=== PATIENT | female | born 1965 | race Caucasian/White ===

== ENCOUNTER → 2021-01-31 12:02 | Outpatient (BNVA) | payer BC, SELFPAY | PROVIDERS: Visit Provider Nurse Practitioner Family | DX: I10 Essential (primary) hypertension (principal); R53.82 Chronic fatigue, unspecified; H60.502 Unspecified acute noninfective otitis externa, left ear; Z12.11 Encounter for screening for malignant neoplasm of colon; Z12.2 Encounter for screening for malignant neoplasm of respiratory organs; Z12.4 Encounter for screening for malignant neoplasm of cervix; Z78.0 Asymptomatic menopausal state | CPT/HCPCS: 80053; 80061; 82306; 82607; 84439; 84443; 84481; 85025; 88175 ==

== ENCOUNTER 2021-03-17 14:03 | Outpatient (CLI) | payer BC, SELFPAY ==
--- NOTE | 2021-03-17 14:00 | MM_ITS ---
WS: [id number] Exam: [place] [id number] Date/Time of Exam: 03/17/2021 2:11 PM Reason For Exam: Z12.39 - Encounter for other screening for malignant neop... VIEWS: MLO and CC views both breasts. Comparison made with prior exam of 07/24/2008, 07/27/2009 and 02/02/2016.. Findings: There are multiple stable appearing nodular densities in both breasts. No suspicious calcification or architectural distortion. The breasts are heterogeneously dense. MM/[place] [id number] Impression: BI-RADS: 2-Benign FOLLOW-UP: 1 Year Follow-up This mammogram was also analyzed by the Computer Aided Detection System R2 Imag e [employer].
--- NOTE | 2021-03-17 14:38 | XR_ITS ---
WS: [id number] DEXA (DUAL ENERGY X-RAY ABSORPTIOMETRY) Bone mineral density was performed using a [employer] machine. HISTORY: Z78.0 - Asymptomatic menopausal state COMPARISON: None available. Lumbar spine BMD (L1-L4): 0.606 g/cm2 T score: -4.8 Z score: -3.1 Total hip BMD: Left: 0.473 g/cm2. T score: -4.2 Z score: -3.0 Right: 0.502 g/cm2. T score: -4.0 Z score: -2.8 10 year probability of a major osteoporotic fracture is 38%. XR/XR DEXA axial skeleton* [id number] IMPRESSION: OSTEOPOROSIS based upon the WHO classification for females.
== END 2021-03-17 14:04 | disposition home or self-care (01) ==
LOC: RADSHAW 14:08
PROVIDERS: PCP Nurse Practitioner Family; Visit Provider Nurse Practitioner Family
DX: Z78.0 Asymptomatic menopausal state (principal); Z12.31 Encounter for screening mammogram for malignant neoplasm of breast; M81.0 Age-related osteoporosis without current pathological fracture
CPT/HCPCS: 77067; 77080

== ENCOUNTER → 2025-02-16 13:39 | Outpatient (BNVA) | payer MEDICAID, SELFPAY | PROVIDERS: PCP Nurse Practitioner Family; Visit Provider Nurse Practitioner Family | DX: Z01.419 Encounter for gynecological examination (general) (routine) without abnormal findings (principal) | CPT/HCPCS: 80053; 80061; 82306; 82607; 84443; 85025 ==

== ENCOUNTER 2025-02-27 15:04 | Outpatient (CLI) | payer MEDICAID, SELFPAY ==
--- NOTE | 2025-02-27 15:15 | CT_ITS ---
WS: [id number] LDCT LUNG CANCER SCREENING HISTORY: F17.210 - Nicotine dependence, cigarettes, uncomplicated TECHNIQUE: Axial imaging performed from the apices to 1 cm below the costophrenic angles. Coronal and sagittal reformats are submitted with axial MIP series. All CT scans at [facility] use at least one of these dose optimization techniques: automated exposure control; mA and/or kV adjustment per patient size (includes targeted exams where dose is matched to clinical indication); or iterative reconstruction. DLP: 44.29 mGy.cm DIvol: Mean CTDIvol: 0.60 (mGy) COMPARISON: None available. Diagnostic quality: Satisfactory Lungs: Mildly hyperinflated lungs. There are a few very tiny micronodules. No mass or endobronchial lesions. Heart: Normal size heart with no pericardial effusion.. Other findings: Mild atherosclerosis aorta. No adenopathy. Well-circumscribed low-attenuation mass in the RIGHT upper abdomen measures 4.0 x 2.9 cm. Separate adrenal gland is not identified. Hounsfield units are low suggesting this is an adenoma. This has not been described on prior studies. There is also mild thickening of the LEFT adrenal gland. CT/CT lung screening [id number] IMPRESSION: LUNG-RADS: 2S-Benign Appearance or Behavior with Significant Findings FOLLOW UP: 12 Month: Continue annual screening with LDCT OTHER FINDINGS (S MODIFIER): RIGHT adrenal mass is probably a benign adenoma. T his has not been previously described are identified. There is also mild thicke reynaldo of the LEFT adrenal gland. Recommend follow-up MRI or CT adrenal gland pro tocol (with and without contrast).
== END 2025-02-27 15:05 | disposition home or self-care (01) ==
LOC: RAD 15:05
PROVIDERS: PCP Nurse Practitioner Family; Visit Provider Nurse Practitioner Family
DX: Z12.2 Encounter for screening for malignant neoplasm of respiratory organs (principal); F17.210 Nicotine dependence, cigarettes, uncomplicated; R91.8 Other nonspecific abnormal finding of lung field; I70.0 Atherosclerosis of aorta; R93.5 Abnormal findings on diagnostic imaging of other abdominal regions, including retroperitoneum; E27.8 Other specified disorders of adrenal gland
CPT/HCPCS: 71271

== ENCOUNTER 2025-03-02 14:04 | Outpatient (CLI) | payer MEDICAID, SELFPAY ==
--- NOTE | 2025-03-02 14:15 | MM_ITS ---
WS: [id number] BILATERAL 3D TOMOSYNTHESIS DIGITAL DIAGNOSTIC MAMMOGRAPHY WITH CAD CLINICAL INFORMATION: N63.0 - Unspecified lump in unspecified breast HISTORY: LEFT breast lump COMPARISON: 2020 TECHNIQUE: Bilateral CC, MLO, and ML views. FINDINGS: The breasts are composed of heterogeneous fibroglandular density, which can limit the detection of small underlying mass lesions. Vascular calcifications. Punctate and lucent centered calcifications. Palpable marker upper outer LEFT breast. Ultrasound of this area is pending. Dense parenchymal tissue with spiculation deep to the palpable marker with some architectural distortion on the spot compression images. ULTRASOUND BREAST LEFT TECHNIQUE: Ultrasound left breast focused area of concern. CLINICAL INFORMATION: N63.0 - Unspecified lump in unspecified breast FINDINGS: Ultrasound LEFT breast at the 2 o'clock position 6 cm from the nipple in the area of palpable concern. Hypoechoic solid-appearing lesion wider than tall measuring 1.9 x 2.5 x 1.0 cm with dense shadowing. This lesion has a suspicious appearance. Ultrasound LEFT axilla appears normal Recommend further evaluation with ultrasound-guided biopsy. MM/MM diag tomosynthesis [id number] IMPRESSION: DENSITY: The breasts are heterogeneously dense, which may obscure small masses. BI-RADS: 4 - Suspicious Finding - Biopsy Should Be Considered FOLLOW UP: US Guided Biopsy Recommended Recommend ultrasound-guided biopsy of the suspicious LEFT breast lesion.
--- NOTE | 2025-03-02 14:45 | US_ITS ---
WS: [id number] BILATERAL 3D TOMOSYNTHESIS DIGITAL DIAGNOSTIC MAMMOGRAPHY WITH CAD CLINICAL INFORMATION: N63.0 - Unspecified lump in unspecified breast HISTORY: LEFT breast lump COMPARISON: 2020 TECHNIQUE: Bilateral CC, MLO, and ML views. FINDINGS: The breasts are composed of heterogeneous fibroglandular density, which can limit the detection of small underlying mass lesions. Vascular calcifications. Punctate and lucent centered calcifications. Palpable marker upper outer LEFT breast. Ultrasound of this area is pending. Dense parenchymal tissue with spiculation deep to the palpable marker with some architectural distortion on the spot compression images. ULTRASOUND BREAST LEFT TECHNIQUE: Ultrasound left breast focused area of concern. CLINICAL INFORMATION: N63.0 - Unspecified lump in unspecified breast FINDINGS: Ultrasound LEFT breast at the 2 o'clock position 6 cm from the nipple in the area of palpable concern. Hypoechoic solid-appearing lesion wider than tall measuring 1.9 x 2.5 x 1.0 cm with dense shadowing. This lesion has a suspicious appearance. Ultrasound LEFT axilla appears normal Recommend further evaluation with ultrasound-guided biopsy. US/US breast LT limited* [id number] IMPRESSION: DENSITY: The breasts are heterogeneously dense, which may obscure small masses. BI-RADS: 4 - Suspicious Finding - Biopsy Should Be Considered FOLLOW UP: US Guided Biopsy Recommended Recommend ultrasound-guided biopsy of the suspicious LEFT breast lesion.
== END 2025-03-02 14:05 | disposition home or self-care (01) ==
PROVIDERS: PCP Nurse Practitioner Family; Visit Provider Nurse Practitioner Family
DX: N63.21 Unspecified lump in the left breast, upper outer quadrant (principal); R92.333 Mammographic heterogeneous density, bilateral breasts; R92.1 Mammographic calcification found on diagnostic imaging of breast; N64.89 Other specified disorders of breast
CPT/HCPCS: 76642; 77062; G0279

== ENCOUNTER 2025-03-18 11:24 | Outpatient (CLI) | payer MEDICAID, SELFPAY ==
--- NOTE | 2025-03-18 11:29 | US_ITS ---
WS: [id number] ULTRASOUND-GUIDED LEFT BREAST BIOPSY HISTORY: ABNORMAL MAMMOGRAM/LUMP COMPARISON: 03/02/2025 Procedure, risks and complications are explained to the patient. Medications are reviewed. Consent is obtained. The mass in the LEFT breast is localized with ultrasound. Mass localizes to 2:00, 6 cm from the nipple. Skin is cleansed with ChloraPrep and anesthetized with 1% buffered lidocaine. Small dermatome is made. Under sterile conditions mass is biopsied with a 14-gauge Achieve needle. Multiple core biopsies are performed. Material placed in formalin and sent to pathology for review. No complications encountered. Breast tissue marker (eDabba ultrasound enhanced ribbon): Single. Patient left the radiology suite with no complications. Patient is instructed to return to [facility] or call with any concerns. US/[place] [id number] IMPRESSION: 1. Uncomplicated core needle biopsy LEFT breast mass at 2:00. PATHOLOGY: Moderate differentiated invasive mammary carcinoma with intermediate to unfavorable nuclear grade. Please see the entire pathology report for furth er details. Breast cancer prognostic profile is pending. RECOMMENDATION: Follow-up with oncology and breast surgeon.
== END 2025-03-18 11:25 | disposition home or self-care (01) ==
PROVIDERS: PCP Nurse Practitioner Family; Visit Provider Nurse Practitioner Family
DX: R92.8 Other abnormal and inconclusive findings on diagnostic imaging of breast (principal); C50.412 Malignant neoplasm of upper-outer quadrant of left female breast; R92.0 Mammographic microcalcification found on diagnostic imaging of breast
CPT/HCPCS: 19083; 88305; 88361; 88374

== ENCOUNTER 2025-04-08 15:03 | Oncology outpatient (recurring) (ONCR) | payer MEDICAID, SELFPAY | END 2025-04-30 23:59 | disposition home or self-care (01) | PROVIDERS: PCP Nurse Practitioner Family; Visit Provider Internal Medicine Medical Oncology | DX: Z53.9 Procedure and treatment not carried out, unspecified reason (principal) | CPT/HCPCS: 36415 ==

== ENCOUNTER 2025-05-06 10:18 | Day surgery (SDC) | payer MEDICAID, SELFPAY ==
[2025-05-06] VITALS (9 sets, daily range): BP systolic 136–179; BP diastolic 87–123; PULSE 64–86; RESP 16–18; TEMP 36.3–36.4; O2SAT 97–99; BMI 17.6
--- NOTE | 2025-05-06 10:41 | W.PM.OPSFHP ---
Same Day Surgery H&P Indication for Procedure/HPI DATE OF PROCEDURE: May 06, 2025 CHIEF COMPLAINT/INDICATIONFOR SURGICAL PROCEDURE: left breast cancer PREOP DIAGNOSIS: left breast cancer PLANNED PROCEDURE: Operation Date: 05/06/25 12:40 Proposed Procedures p LEFT Breast Lumpectomy w/ Needle Localization [id number] [id number] 09150 47513 C50.912(Left) - Alban Tucker MD s Sentinal Lymph Node Biopsy(Left) - Alban Tucker MD Medications/Allergies* Home Medications ?Medication ?Instructions ?Recorded ?Confirmed ?Type ascorbic acid (vitamin C) 1,000 mg 1,000 mg PO DAILY 05/05/25 05/05/25 History tablet (Vitamin C) cholecalciferol (vitamin D3) 50 50 mcg PO DAILY 05/05/25 05/05/25 History mcg (2,000 unit) capsule (Vitamin D3) cobalamin combinations capsule 1,000 cap PO DAILY 05/05/25 05/05/25 History multivitamin 1 tab PO DAILY 05/05/25 05/05/25 History Allergies/Adverse Reactions Allergy/AdvReac Type Severity Reaction Status Date / Time No Known Allergies Allergy Verified 05/05/25 10:28 Pertinent History/Comorbid Conditions* Medical History (Updated 03/31/25 @ 16:23 by Marcelo Diaz MD) Hypertension Nicotine abuse Alcohol abuse Anxiety and depression Gum disease Surgical History (Updated 01/31/21 @ 11:00 by TERI Evangelista) History of laparoscopy Hx of tubal ligation Family History (Updated 01/31/21 @ 10:40 by Suzanne Mora LPN, RT) Cancer Mother Social History Smoking and tobacco/nicotine status: current every day tobacco/nicotine user (1/2 PPD) cigarettes Packs smoked per day: 0.5 Years cigarettes smoked: 35 Second hand smoke exposure: Yes Alcohol intake: current Alcohol intake frequency: 0-2 Drinks per Day Alcohol type: beer Substance/Drug Use: never Lives independently: Yes Household members: spouse Marital status: service: No Current occupational status: unemployed Current gender identity: Female Special akira needs: No Agree to transfusion: Yes Pertinent Exam Findings alert, oriented x 3, clear to auscultation bilaterally and operative site marked Left breast marked. Left breast upper outer quadrant 1 cm hard nodule. No skin changes. No discharge. Right breast exam normal. No lymphadenopathy. Recommendations Risks and benefits of procedure reviewed and Patient/family agree to proceed Surgery/Procedure today Other Plans: Left breast lumpectomy, sentinel lymph node biopsy. Coding Level of Care Code Acute Code for Chg Fwd
--- NOTE | 2025-05-06 10:43 | US_ITS ---
WS: [id number] ULTRASOUND-GUIDED LEFT breast needle localization CLINICAL INFORMATION: LT BREAST NEEDLE LOC FINDINGS: The procedure including risks, benefits, and complications were discussed with the patient who agreed to proceed. Using sterile technique patient was prepped and draped in the usual sterile fashion. After 1% lidocaine utilizing real-time ultrasound guidance a 7 cm Kopans needle was advanced through the hypoechoic mass at the 2 o'clock position LEFT breast 6 cm from the nipple. Needle was deployed without complication. Tip approximately 1 cm distal to the lesion. No immediate complications. US/[place] [id number] IMPRESSION: 1. Uncomplicated ultrasound-guided LEFT breast mass needle localization 2. Ultrasound surgical specimen demonstrates gross total resection with intact wire. 3. Surgical pathology is pending. 4. Follow-up with oncology and breast surgery as directed DENSITY: The breasts are heterogeneously dense, which may obscure small masses. BI-RADS: 6 - Known Biopsy - Proven Malignancy FOLLOW UP: See Report
--- NOTE | 2025-05-06 11:06 | PC.NURSE ---
1107: pt left ops with staff from radiology
--- NOTE | 2025-05-06 11:12 | ANES.PREANE2 ---
Pre-Anesthetic Assessment Height/Weight: Height 1.52 m Weight 40.823 kg Temp Pulse Resp BP Pulse Ox O2 Del Method 97.6 F 71 18 179/119 98 Room Air 05/06/25 10:39 05/06/25 10:39 05/06/25 10:39 05/06/25 10:39 05/06/25 10:39 05/06/25 10:41 Preop Diagnosis: left breast cancer Operation Date: 05/06/25 12:40 Proposed Procedures p LEFT Breast Lumpectomy w/ Needle Localization 19886 [id number] 83555 [id number] 88681 C50.912(Left) - Alban Tucker MD s Sentinal Lymph Node Biopsy(Left) - Alban Tucker MD Familial anesthetic complications: None Was Beta Tim taken within 24 hours: N/A Was Clonidine taken within 24 hours: N/A Last intake: Intake Last Liquid Date 05/05/25 Last Liquid Time 11:45 Last Solid Date 05/05/25 Last Solid Time 21:30 Social No alcohol and No tobacco Exam alert, oriented x 3, clear to auscultation bilaterally and regular rate & rhythm Airway Mallampati: Class I Dentition: full CV/HEM Hypertension Anesthetic Plan ASA status: 2 Anesthesia: General Risk of > 500 ml blood loss (7ml/kg in children): No Medications/Allergies Home Medications ?Medication ?Instructions ?Recorded ?Confirmed ?Last Taken ?Type cholecalciferol (vitamin D3) 1,250 50,000 unit PO .once weekly #12 02/20/25 05/05/25 05/04/25 Rx mcg (50,000 unit) tablet tabs ascorbic acid (vitamin C) 1,000 mg 1,000 mg PO DAILY 05/05/25 05/05/25 05/04/25 History tablet (Vitamin C) cholecalciferol (vitamin D3) 50 50 mcg PO DAILY 05/05/25 05/05/25 05/04/25 History mcg (2,000 unit) capsule (Vitamin D3) cobalamin combinations capsule 1,000 cap PO DAILY 05/05/25 05/05/25 05/04/25 History multivitamin 1 tab PO DAILY 05/05/25 05/05/25 05/04/25 History Allergies Allergy/AdvReac Type Severity Reaction Status Date / Time No Known Allergies Allergy Verified 05/05/25 10:28 [facility] Anesthesia Medical History Hypertension Nicotine abuse Alcohol abuse Anxiety and depression Gum disease Surgical History History of laparoscopy Hx of tubal ligation Family History Family/Other No problems noted. Mother Cancer Social History Smoking and tobacco/nicotine status: current every day tobacco/nicotine user (1/2 PPD) cigarettes Packs smoked per day: 0.5 Years cigarettes smoked: 35 Second hand smoke exposure: Yes Alcohol intake: current Alcohol intake frequency: 0-2 Drinks per Day Alcohol type: beer Substance/Drug Use: never Lives independently: Yes Household members: spouse Marital status: service: No Current occupational status: unemployed Current gender identity: Female Special akira needs: No Agree to transfusion: Yes
--- NOTE | 2025-05-06 12:00 | NM_ITS ---
WS: [id number] SENTINEL NODE TECHNIQUE: LEFT sentinel node injection at 1146 CLINICAL INFORMATION: C50.912 PROCEDURE: The procedure including risks, benefits, and complications were discussed; the patient agreed to proceed. Patient was prepped and draped in usual sterile fashion. Subsequently, 1 aliquot filtered technetium 99m [id number] was injected into the subcutaneous soft tissues. A total dose of 550 uCi TC99M was administered. Patient tolerated the procedure well with no immediate complications. No delayed imaging. Patient transported to the OR for surgery NM/NM sentinel node inject [id number] IMPRESSION: Uncomplicated LEFT breast sentinel node injection with a total dose of 550 uCi.
[2025-05-06 12:20] LABS: Hematocrit 40.8 % (36-47); Hemoglobin 13.70 g/dL (11.27-16.99); Mean Corpuscular HGB Conc 33.6 g/dL (30-55); Mean Corpuscular Hemoglobin 33.6 pg (27-33); Mean Corpuscular Volume 100.0 fl (85-98); Nucleated Red Blood Cells % 0 %; Platelet Count 358 10^3/cmm (157-399); Red Blood Count 4.08 10^6/uL (3.85-5.65); White Blood Count 6.83 10^3/uL (3.29-11.43)
[2025-05-06] MEDS: ceFAZolin 2,000 mg SDV 2000 MG IVP (12:30)
[2025-05-06 12:37] LABS: Anion Gap 15.8 (5-19); Blood Urea Nitrogen 7 mg/dL (8-23); Calcium 9.5 mg/dL (8.5-10.5); Carbon Dioxide 25 mmol/L (22-29); Chloride 105 mmol/L (98-107); Creatinine Clr Calc Pharmacy 81.3806; Glucose 87 mg/dL (65-115); Osmolality Calculated 291 mOsm/kg (285-295); Potassium 3.8 mmol/L (3.5-5.1); Sodium 142 mmol/L (136-145)
[2025-05-06] MEDS: isosulfan blue 10 mg/mL SDV 5mL SUBCUT (13:13)
[2025-05-06] MEDS: lidocaine-epi 1% 20 mL INJ INJECTION (13:21)
[2025-05-06] MEDS: BUPivacaine 0.25% INJ 10 mL INJECTION (13:22)
--- NOTE | 2025-05-06 13:52 | US_ITS ---
WS: [id number] ULTRASOUND-GUIDED LEFT breast needle localization CLINICAL INFORMATION: LT BREAST NEEDLE LOC FINDINGS: The procedure including risks, benefits, and complications were discussed with the patient who agreed to proceed. Using sterile technique patient was prepped and draped in the usual sterile fashion. After 1% lidocaine utilizing real-time ultrasound guidance a 7 cm Kopans needle was advanced through the hypoechoic mass at the 2 o'clock position LEFT breast 6 cm from the nipple. Needle was deployed without complication. Tip approximately 1 cm distal to the lesion. No immediate complications. US/US breast surgical specimen IMPRESSION: 1. Uncomplicated ultrasound-guided LEFT breast mass needle localization 2. Ultrasound surgical specimen demonstrates gross total resection with intact wire. 3. Surgical pathology is pending. 4. Follow-up with oncology and breast surgery as directed DENSITY: The breasts are heterogeneously dense, which may obscure small masses. BI-RADS: 6 - Known Biopsy - Proven Malignancy FOLLOW UP: See Report
--- NOTE | 2025-05-06 14:01 | PM.OP ---
Operative Report Date of procedure: May 06, 2025 Pre-op diagnosis: Left breast cancer Post-op diagnosis: same Post-op findings: Left breast lumpectomy. Confirmed adequate margins based on x-ray of specimen. [place] lymph node biopsy performed successfully Mia counter 50 at skin level, 75 ex vivo. Resected all palpable, blue, and hot nodes in 1 single pack. Procedure done: Left breast lumpectomy and sentinel lymph node biopsy. Implants: N/A Specimens removed/disposition: Left breast lumpectomy specimen sent to pathology. Margins marked using 2-0 silk. Short superior. Long lateral. [place] lymph node biopsy specimen sent to pathology. Pathology: Left breast lumpectomy specimen and sentinel lymph node biopsy specimen sent to pathology Surgeon: Alban Tucker MD Investment Officer: N/A Anesthesia: General Estimated blood loss (mL): 75 Complications: N/A Findings: Left breast lumpectomy. Confirmed adequate margins based on x-ray of specimen. [place] lymph node biopsy performed successfully Mia counter 50 at skin level, 75 ex vivo. Resected all palpable, blue, and hot nodes in 1 single pack. Condition: stable Disposition: same day Brief History: 60-year-old female who presented with left breast cancer. Discussed risk and benefits and patient agreed to proceed with left lumpectomy and sentinel lymph node biopsy. Ultrasound-guided wire localization of left breast lesion. Radiocolloid injected 30 minutes prior to starting case. Blue dye injected under the areola and massaged breast for 5 minutes. Procedure: The wire localization of the left breast mammographic abnormality was performed by the radiologist under ultrasound guidance prior to bringing patient to the OR. A technetium sulfur colloid was also injected by the radiologist in the periareolar area of the left breast prior to bringing patient to OR. The left breast and axilla was prepped and draped in the usual sterile fashion. General anesthesia induced. Prophylactic antibiotics administered. The sentinel lymph node biopsy was performed first. 5 mL of 1% Lymphazurin was injected in the subareolar location. The breast was massaged for 5 minutes and a 2 cm incision was made in the left axilla at the edge of the hairline (mia counter counts 50 at skin level). The subcutaneous tissue and clavipectoral fascia was divided with electrocautery and gentle dissection revealed lymphatics with stained lymph nodes. Using electrocautery, the lymph nodes that were hot, blue, and palpable were dissected free in a single pack. Ex-vivo mia counter of 75 was obtained using the gamma probe. Examination of the axilla did not reveal any other blue, palpable, or hot lymph nodes. The clavipectoral and subcutaneous tissue was approximated using running 3-0 Vicryl suture and skin was closed using running subcuticular 4-0 Monocryl suture and Dermabond. I then turned my attention to performing the left breast lumpectomy. A curvilinear incision was made over lesion. Subcutaneous tissue was divided and skin flaps were raised superiorly and inferiorly.?Using electrocautery, the wire along with the breast tissue containing mammographic abnormality??was dissected free from the surrounding tissue.??Using 2-0 silk suture the specimen was marked, short stitch was placed superiorly and a long stitch was placed laterally. The wound was irrigated with sterile water, hemostasis ensured with electrocautery and several stick ties as well as medium clips. Multiple anchor sutures performed using 2-0 vicryl. Subcutaneous tissues approximated using 3-0 running Vicryl suture and skin was closed using running subcuticular 4-0 Monocryl sutures and Dermabond. Fluffs were used for pressure dressing.?A sports bra was applied.?Patient was transferred to recovery room and stable condition. The lumpectomy specimens were sent to mammography to obtain radiological confirmation of complete excision of the mammographic abnormality. No close margins identified.
--- NOTE | 2025-05-06 15:20 | ANE.PACU2 ---
Inpatient post-anesthesia follow up: Airway intact: Yes Vital signs: Temperature 97.4 F Pulse Rate 74 Respiratory Rate 17 Blood Pressure 168/99 Pulse Oximetry 98 Oxygen Delivery Me thod Room Air Oxygen Flow Rate Fraction of Inspir ed Oxygen Hydration adequate: Yes Nausea and vomiting: No Pain level: 1 Mental status: Baseline
[2025-05-14 13:41] LABS: Breast Profile ER,PR,HER2,Ki-6 See Report
== END 2025-05-06 15:20 | disposition home or self-care (01) ==
PROVIDERS: Anesthesiology; PCP Nurse Practitioner Family; Visit Provider Student in an Organized Health Care Education/Training Program
PROC: (CPT 19120; principal; 2025-05-06 12:30)
PROC: (CPT 38525; 2025-05-06 12:30)
DX: C50.912 Malignant neoplasm of unspecified site of left female breast (principal); I10 Essential (primary) hypertension; F41.8 Other specified anxiety disorders; F17.210 Nicotine dependence, cigarettes, uncomplicated
CPT/HCPCS: 38525; 19301; 19285; 36415; 38792; 80048; 85025; 88307; 88342; 88361; 88374; A9520; J0690; J2704; J3010; J3490; J7030; J9999; Q9968

== ENCOUNTER 2025-05-25 09:24 | Oncology outpatient (recurring) (ONCR) | payer MEDICAID, SELFPAY ==
[2025-05-25 09:57] LABS: Hematocrit 38.7 % (36-47); Hemoglobin 12.90 g/dL (11.27-16.99); Mean Corpuscular HGB Conc 33.3 g/dL (30-55); Mean Corpuscular Hemoglobin 33.5 pg (27-33); Mean Corpuscular Volume 100.5 fl (85-98); Nucleated Red Blood Cells % 0 %; Platelet Count 376 10^3/cmm (157-399); Red Blood Count 3.85 10^6/uL (3.85-5.65); White Blood Count 7.07 10^3/uL (3.29-11.43)
[2025-05-25 10:44] LABS: Alanine Aminotransferase 11 U/L (0-33); Albumin Level 4.4 g/dL (3.5-5.2); Alkaline Phosphatase 75 U/L (35-105); Anion Gap 18.8 (5-19); Aspartate Amino Transferase 15 U/L (0-32); Blood Urea Nitrogen 8 mg/dL (8-23); Calcium 10.5 mg/dL (8.5-10.5); Carbon Dioxide 22 mmol/L (22-29); Chloride 98 mmol/L (98-107); Creatinine Clr Calc Pharmacy 58.1290; Globulin 2.7 g/dL (1.3-4.6); Glucose 109 mg/dL (65-115); Osmolality Calculated 279 mOsm/kg (285-295); Potassium 3.8 mmol/L (3.5-5.1); Sodium 135 mmol/L (136-145); Total Protein 7.1 g/dL (6.6-8.7)
== END 2025-05-31 23:59 | disposition home or self-care (01) ==
LOC: ONCMED 09:24
PROVIDERS: PCP Nurse Practitioner Family; Visit Provider Internal Medicine Medical Oncology
DX: C50.919 Malignant neoplasm of unspecified site of unspecified female breast (principal)
CPT/HCPCS: 36415; 80053; 85025

== ENCOUNTER 2025-06-24 07:00 | Day surgery (SDC) | payer MEDICAID, SELFPAY ==
[2025-06-24] VITALS (15 sets, daily range): BP systolic 121–140; BP diastolic 82–93; PULSE 74–87; RESP 8–20; TEMP 36.1–37; O2SAT 90–97; BMI 17.6
--- NOTE | 2025-06-24 07:21 | W.PM.OPSUD ---
Surgery/Procedure H&P Update DATE OF PROCEDURE: June 24, 2025 DATE H&P PERFORMED: 05/28/25 H&P UPDATE INFORMATION: I have reviewed H&P completed within last 30 days, I have examined patient prior to procedure, No changes to prior documentation and Risks and benefits of the procedure reviewed PRIMARY INDICATION FOR PROCEDURE: Left mastectomy for breast cancer PLANNED PROCEDURE: Operation Date: 06/24/25 08:20 Proposed Procedures p Mastectomy Simple LEFT 44765 C50.912(Left) - Alban Tucker MD
--- NOTE | 2025-06-24 07:49 | ANES.PREANE2 ---
Pre-Anesthetic Assessment Height/Weight: Height 1.52 m Weight 40.823 kg Temp Pulse Resp BP Pulse Ox O2 Del Method 96.9 F L 76 18 140/93 97 Room Air 06/24/25 07:25 06/24/25 07:25 06/24/25 07:25 06/24/25 07:25 06/24/25 07:25 06/24/25 07:25 Preop Diagnosis: breast ca L Operation Date: 06/24/25 08:20 Proposed Procedures p Mastectomy Simple LEFT 77716 C50.912(Left) - Alban Tucker MD Familial anesthetic complications: none Was Beta Tim taken within 24 hours: N/A Was Clonidine taken within 24 hours: N/A Last intake: Intake Last Liquid Date 06/23/25 Last Liquid Time 22:30 Last Solid Date 06/23/25 Last Solid Time 22:00 Social Tobacco (1 PPD x 52 years) Exam alert, oriented x 3, clear to auscultation bilaterally and regular rate & rhythm Airway Submandibular: within normal limits Cervical ROM: within normal limits Mallampati: Class I Comments: Comments: dentures - upper and lower History/ROS No significant history except as noted Pulmonary Chronic Obstructive Pulmonary Disease CV/HEM Hypertension None reported Hepatic None reported GI None reported Metabolic None reported Musc/skel Osteoarthritis/DJD Neuropsych None reported Anesthetic Plan ASA status: 3 Anesthesia: General Risk of > 500 ml blood loss (7ml/kg in children): No Medications/Allergies Home Medications ?Medication ?Instructions ?Recorded ?Confirmed ?Last Taken ?Type ascorbic acid (vitamin C) 1,000 mg 1,000 mg PO DAILY 05/05/25 06/24/25 06/23/25 History tablet (Vitamin C) cholecalciferol (vitamin D3) 50 50 mcg PO DAILY 05/05/25 06/24/25 06/23/25 History mcg (2,000 unit) capsule (Vitamin D3) multivitamin 1 tab PO DAILY 05/05/25 06/24/25 06/23/25 History oxycodone 5 mg tablet 5 mg PO Q6H 05/25/25 06/24/25 Unknown History amlodipine 5 mg tablet 5 mg PO DAILY #30 tabs 06/23/25 06/24/25 06/24/25 Rx mecobalamin (vitamin B12) 1,000 1,000 mcg PO DAILY 06/23/25 06/24/25 06/23/25 History mcg chewable tablet (B12 Active) Allergies Allergy/AdvReac Type Severity Reaction Status Date / Time No Known Allergies Allergy Verified 06/24/25 07:10 Current Medications Generic Name Dose Route Start Last Admin Trade Name Jay PRN Reason Stop Dose Admin Sodium Chloride 1,000 mls @ 30 mls/hr 06/24/25 07:15 06/24/25 07:48 Sodium Chloride 0.9% IV 06/25/25 07:14 30 mls/hr .Q24H ISMAEL Administration PFSH Anesthesia Medical History Hypertension Nicotine abuse Alcohol abuse Anxiety and depression Gum disease Surgical History History of laparoscopy Hx of tubal ligation Family History Family/Other No problems noted. Mother Cancer Social History Smoking and tobacco/nicotine status: current every day tobacco/nicotine user (1/2 PPD) cigarettes Packs smoked per day: 0.5 Years cigarettes smoked: 35 Second hand smoke exposure: Yes Alcohol intake: current Alcohol intake frequency: 0-2 Drinks per Day Alcohol type: beer Substance/Drug Use: never Lives independently: Yes Household members: spouse Marital status: service: No Current occupational status: unemployed Current gender identity: Female Special akiar needs: No Agree to transfusion: Yes
[2025-06-24] MEDS: ceFAZolin 2,000 mg SDV 2000 MG IVP (08:05)
[2025-06-24] MEDS: BUPivacaine 0.5% INJ 10 mL INJECTION (08:44)
[2025-06-24] MEDS: lidocaine-epi 1% 20 mL INJ INJECTION (08:44)
--- NOTE | 2025-06-24 08:46 | P.OP_ITS ---
Operative Report Date of procedure: June 24, 2025 Pre-op diagnosis: Left breast cancer Post-op diagnosis: same Post-op findings: Left mastectomy Procedure done: Simple left mastectomy Implants: N/A Specimens removed/disposition: Left mastectomy specimen sent to pathology Pathology: Left mastectomy specimen sent to pathology Surgeon: Alban Tucker MD Licensed Bondsman: N/A Anesthesia: General Estimated blood loss (mL): 30 Complications: N/A Findings: Simple left mastectomy. Condition: stable Disposition: same day Brief History: 60-year-old female who presented initially with left breast cancer. Underwent breast conservation surgery and had positive margins. Given small breast unable to take additional margins. Patient agreed to proceed with left mastectomy after discussing risks and benefits. Procedure: The patient was wheeled into the operative room and placed on the OR table in the supine position. The right breast and axilla were inspected prepped and draped in the usual sterile fashion. A timeout was performed. All present were in agreement. An elliptical incision was made from medial to the latissimus dorsi to lateral to the sternum, encompassing the nipple. Dissection was carried out using electrocautery down to the clavipectoral fascia and down to the pectoralis major. The entirety of the breast tissue was excised. The breast was removed and specimen sent to pathology. The surgical field was irrigated with sterile water and adequate hemostasis was achieved using electrocautery and suture ligation of small blood vessels using 3-0 vicryl. A 14 U[place] Callum drain was then placed in the resection bed. Dermis was then approximated with interrupted 2-0 Vicryl. Skin was then closed with multiple interrupted 2-0 nylon stitches. A sterile dressing was applied. Patient tolerated the procedure well and was wheeled in the postoperative anesthesia care unit in good condition.
[2025-06-24] MEDS: fentaNYL 50 mcg/mL INJ 2mL IVP (09:48)
--- NOTE | 2025-06-24 11:05 | ANE.PACU2 ---
Inpatient post-anesthesia follow up: Airway intact: Yes Vital signs: Temperature 97.2 F Pulse Rate 81 Respiratory Rate 17 Blood Pressure 135/84 Pulse Oximetry 92 Oxygen Delivery Me thod Room Air Oxygen Flow Rate Fraction of Inspir ed Oxygen Hydration adequate: Yes Nausea and vomiting: No Pain level: 1 Mental status: Baseline
== END 2025-06-24 11:05 | disposition home or self-care (01) ==
PROVIDERS: PCP Nurse Practitioner Family; Visit Provider Student in an Organized Health Care Education/Training Program
PROC: (CPT 19303; principal; 2025-06-24 08:20)
DX: C50.912 Malignant neoplasm of unspecified site of left female breast (principal); J44.9 Chronic obstructive pulmonary disease, unspecified; I10 Essential (primary) hypertension; Z79.891 Long term (current) use of opiate analgesic; F41.8 Other specified anxiety disorders; F17.210 Nicotine dependence, cigarettes, uncomplicated
CPT/HCPCS: 19303; 88309; J0690; J1100; J2250; J2405; J2704; J3010; J3490; J7030; J9999

== ENCOUNTER 2025-07-21 12:22 | Oncology outpatient (recurring) (ONCR) | payer MEDICAID, SELFPAY ==
[2025-07-21 12:45] LABS: Hematocrit 41.4 % (36-47); Hemoglobin 14.50 g/dL (11.27-16.99); Mean Corpuscular HGB Conc 35.0 g/dL (30-55); Mean Corpuscular Hemoglobin 33.6 pg (27-33); Mean Corpuscular Volume 95.8 fl (85-98); Nucleated Red Blood Cells % 0 %; Platelet Count 443 10^3/cmm (157-399); Red Blood Count 4.32 10^6/uL (3.85-5.65); White Blood Count 8.88 10^3/uL (3.29-11.43)
[2025-07-21 13:07] LABS: Alanine Aminotransferase 13 U/L (0-33); Albumin Level 4.9 g/dL (3.5-5.2); Alkaline Phosphatase 82 U/L (35-105); Anion Gap 20.4 (5-19); Aspartate Amino Transferase 21 U/L (0-32); Blood Urea Nitrogen 5 mg/dL (8-23); Calcium 10.2 mg/dL (8.5-10.5); Carbon Dioxide 24 mmol/L (22-29); Chloride 96 mmol/L (98-107); Globulin 2.8 g/dL (1.3-4.6); Glucose 103 mg/dL (65-115); Osmolality Calculated 280 mOsm/kg (285-295); Potassium 4.4 mmol/L (3.5-5.1); Sodium 136 mmol/L (136-145); Total Protein 7.7 g/dL (6.6-8.7)
== END 2025-07-31 23:59 | disposition home or self-care (01) ==
PROVIDERS: PCP Nurse Practitioner Family; Visit Provider Internal Medicine Medical Oncology
DX: C50.919 Malignant neoplasm of unspecified site of unspecified female breast (principal)
CPT/HCPCS: 36415; 80053; 85025

== ENCOUNTER 2025-09-15 11:27 | Oncology outpatient (recurring) (ONCR) | payer MEDICAID, SELFPAY ==
[2025-09-15 11:52] LABS: Hematocrit 41.1 % (36-47); Hemoglobin 14.10 g/dL (11.27-16.99); Mean Corpuscular HGB Conc 34.3 g/dL (30-55); Mean Corpuscular Hemoglobin 34.1 pg (27-33); Mean Corpuscular Volume 99.3 fl (85-98); Nucleated Red Blood Cells % 0 %; Platelet Count 403 10^3/cmm (157-399); Red Blood Count 4.14 10^6/uL (3.85-5.65); White Blood Count 7.86 10^3/uL (3.29-11.43)
[2025-09-15 12:18] LABS: Alanine Aminotransferase 12 U/L (0-33); Albumin Level 4.6 g/dL (3.5-5.2); Alkaline Phosphatase 79 U/L (35-105); Anion Gap 16.7 (5-19); Aspartate Amino Transferase 18 U/L (0-32); Blood Urea Nitrogen 6 mg/dL (8-23); Calcium 9.9 mg/dL (8.5-10.5); Carbon Dioxide 25 mmol/L (22-29); Chloride 100 mmol/L (98-107); Globulin 2.5 g/dL (1.3-4.6); Glucose 103 mg/dL (65-115); Osmolality Calculated 284 mOsm/kg (285-295); Potassium 3.7 mmol/L (3.5-5.1); Sodium 138 mmol/L (136-145); Total Protein 7.1 g/dL (6.6-8.7)
== END 2025-09-30 23:59 | disposition home or self-care (01) ==
PROVIDERS: PCP Nurse Practitioner Family; Visit Provider Internal Medicine Medical Oncology
DX: C50.912 Malignant neoplasm of unspecified site of left female breast (principal); E55.9 Vitamin D deficiency, unspecified
CPT/HCPCS: 80053; 82306; 85025

== ENCOUNTER 2025-09-30 15:32 | Outpatient (CLI) | payer MEDICAID, SELFPAY ==
--- NOTE | 2025-09-30 15:30 | XR_ITS ---
WS: [id number] SCREENING DEXA SCAN [facility] CLINICAL INFORMATION: Baseline bone density scan / left breast cancer. COMPARISON: 2020 FINDINGS: The L1-L4 bone mineral density measures 0.624 g/cm2. This corresponds to a T score score of -4.6 and Z score of -2.6. Left femoral neck bone mineral density measures 0.439 g/cm2. This corresponds to a T score of -4.5 and Z score of -3.0. Right femoral neck bone mineral density measures 0.496 g/cm2. This corresponds to a T score -4.1of and Z score of -2.5. Mean femoral neck bone mineral density measures 0.467 g/cm2. This corresponds to a T score of -4.3 and Z score of -2.7. XR/XR DEXA axial skeleton* [id number] IMPRESSION: Osteoporosis lumbar spine. Osteoporosis femoral necks. Patient's FRAX calculated 10 year probability for major osteoporotic fracture i s 46.3% and osteoporotic hip fracture is 37.6%. Bone density lumbar spine increased 3.0% Bone density femoral necks decreased -4.3%
== END 2025-09-30 15:33 | disposition home or self-care (01) ==
LOC: RAD 15:33
PROVIDERS: PCP Nurse Practitioner Family; Visit Provider Nurse Practitioner
DX: Z13.820 Encounter for screening for osteoporosis (principal); Z78.0 Asymptomatic menopausal state
CPT/HCPCS: 77080